=== PATIENT | male | born 1990 | race Caucasian/White ===

== ENCOUNTER 2016-11-14 15:10 | Emergency (ER) | payer BC ==
[~2016-11-14] VITALS: Ht 177.8 cm; Wt 63.1 kg
[2016-11-14 15:19] VITALS: TEMP 36.5; Ht 177.8 cm; Wt 63.1 kg
[2016-11-14] MEDS ORDERED: OXYCODONE HCL IR 5 MG TAB (IMMEDIATE RELEASE) PO STA (15:35)
--- NOTE | 2016-11-14 16:27 | DIAGNOSTIC IMAGING REPORT ---
HEAD CT NONCONTRAST CT DOSE: 876.85 mGy.cm HISTORY: Trauma CHI TECHNIQUE: Multiaxial CT images of the head were performed without the use of intravenous contrast. Comparison: None. Findings: The paranasal sinuses and mastoid air cells are clear. The calvarium and skull base are intact. The ventricles and sulci are within normal limits. There is no mass, hematoma, midline shift, or acute infarct. Impression: No acute intracranial abnormality. Electronically signed by: Edi Castañeda M.D. 11/14/2016 4:25 PM Dictated Date/Time: 11/14/2016 4:24 PM
--- NOTE | 2016-11-14 16:28 | DIAGNOSTIC IMAGING REPORT ---
CERVICAL SPINE CT CT DOSE: HISTORY: Trauma Neck/bilateral shoulder pain TECHNIQUE: Multiaxial CT images of the cervical spine were performed and reformatted in the sagittal and coronal plane without the use of contrast. COMPARISON: None. FINDINGS: No fractures. No subluxation. Prevertebral soft tissues and the C1-C2 interval are intact. No pneumothorax. IMPRESSION: No fractures within the cervical spine. Electronically signed by: Edi Castañeda M.D. 11/14/2016 4:26 PM Dictated Date/Time: 11/14/2016 4:25 PM
--- NOTE | 2016-11-14 16:36 | DIAGNOSTIC IMAGING REPORT ---
CHEST CT WITHOUT CONTRAST CT DOSE: HISTORY: Trauma L rib pain/chest pain TECHNIQUE: Multiaxial CT images of the chest were performed without contrast. COMPARISON: None. FINDINGS: The lungs are clear. The mediastinal vascular structures are within normal limits. No mediastinal or hilar lymphadenopathy. No pleural effusion or pneumothorax. Limited views of the upper abdomen demonstrate a normal liver and spleen. IMPRESSION: No acute process. Electronically signed by: Edi Castañeda M.D. 11/14/2016 4:34 PM Dictated Date/Time: 11/14/2016 4:29 PM
--- NOTE | 2016-11-14 16:38 | DIAGNOSTIC IMAGING REPORT ---
CT SCAN OF THE THORACIC SPINE WITHOUT IV CONTRAST CLINICAL HISTORY: Trauma. COMPARISON STUDY: CT scan of the chest performed concurrently on 11/14/2016 and 09/26/2013. TECHNIQUE: CT scan of the thoracic spine is performed from the lower cervical spine to the upper lumbar spine. Images are reviewed in the axial, sagittal, and coronal planes. IV contrast was not administered for this examination. CT DOSE: 239.93 mGy.cm FINDINGS: The skeletal structures are well mineralized. There is no evidence of fracture or malalignment. Vertebral body height and alignment are maintained throughout the thoracic spine. The transverse and spinous processes appear intact. No lytic or blastic lesions are identified. Intervertebral disc spaces appear maintained. The central canal is clear as imaged. No large disc herniation is suspected. The posterior ribs appear intact. The paraspinous soft tissues are within normal limits. Visualized lung parenchyma appears clear. IMPRESSION: There is no evidence of fracture or malalignment involving the thoracic spine. Electronically signed by: Sreedhar Jaquez M.D. 11/14/2016 4:36 PM Dictated Date/Time: 11/14/2016 4:33 PM
[2016-11-14] MEDS ORDERED: OXYC1TAB3 PO (17:03)
[2016-11-14 17:21] VITALS: BP 101/56; PULSE 73; O2SAT 99
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
== END 2016-11-14 17:57 | disposition home or self-care (01) ==
LOC: C.EDB 15:13
DX: S20.211A Contusion of right front wall of thorax, initial encounter (principal); S09.90XA Unspecified injury of head, initial encounter; W20.8XXA Other cause of strike by thrown, projected or falling object, initial encounter; M25.511 Pain in right shoulder; M25.512 Pain in left shoulder; F32.9 Major depressive disorder, single episode, unspecified; Z88.5 Allergy status to narcotic agent; Z88.8 Allergy status to other drugs, medicaments and biological substances

== ENCOUNTER 2017-05-06 16:11 | Emergency (ER) | payer OTHER, BC ==
[~2017-05-06] VITALS: Ht 185.4 cm; Wt 6.0 kg
[~2017-05-06 16:11] MED LIST: OXYC1TAB3 PO
[2017-05-06 16:16] VITALS: TEMP 36.7; Ht 185.4 cm; Wt 6.0 kg
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
[2017-05-06] MEDS ORDERED: HYDR-5688 PO ×2 (17:31→19:00)
[2017-05-06 17:45] VITALS: BP 112/72; PULSE 82; O2SAT 99
--- NOTE | 2017-05-07 01:01 | EMERGENCY ROOM VISIT NOTE ---
ED Visit Note First contact with patient: 16:25 Chief Complaint: My left leg and ankle hurts. History of Present Illness: Mr. Ramachandran is a 26-year-old white male who ambulates into the ED complaining of lower left leg pain, ankle and foot pain. Patient reports last evening he was working on a car. He stepped backwards and the car rolled over his lower leg, ankle and foot. He reports initially the pain was mild but has gradually increased and became severe today. He reports at rest he describes his pain as a pressure or throbbing sensation that becomes sharp with weightbearing, ambulation and palpation. He rates his discomfort at rest 5/10 and with weightbearing and ambulation 8/10. His pain is nonradiating. He reports she's been using ibuprofen and acetaminophen without relief of his discomfort. He denies any associated pain including knee pain, proximal tibial pain, toe pain, foot weakness/numbness/tingling. He denies any previous significant injuries or surgeries to the left lower leg, ankle or foot. Review of Systems: As noted above in history of present illness. Past Medical History: Patient denies. Current Medications: Patient denies. Allergies to Medications: Morphine, ketorolac tromethamine. Social History: Patient is currently employed; he feels safe in his home environment; he admits to tobacco and alcohol use. Physical Examination: Vital Signs: Date Time Temp Pulse Resp B/P (MAP) Pulse Ox O2 Delivery O2 Flow Rate FiO2 05/06/17 17:45 82 112/72 99 05/06/17 16:45 84 148/99 98 Room Air 05/06/17 16:16 36.7 92 18 114/73 100 Room Air GENERAL: 26 -year-old male in mild to moderate distress due to pain, nontoxic- appearing, afebrile and hemodynamically stable. NEUROLOGICAL: Awake, alert and oriented to person, place and time. Answering questions appropriately and following commands. SKIN: Warm, dry and pink. Left Lower Leg: Superficial abrasion over the anterior and medial aspect of the left lower leg, ankle and foot. LEFT LOWER EXTREMITY: No gross bony deformity. No tenderness in the hip or the knee. Moderate tenderness over the distal third of the anterior medial tibia, the anterior, lateral and medial ankle and over the medial aspect of the foot including navicular and medial cuneiform tarsals. I do not appreciate any bony deformity or crepitus. There is mild swelling and no ecchymosis. He has full range of motion at the knee and all the toes. Slight decreased range of motion any ankle due to pain. I do not appreciate any ligamentous laxity. Throughout the foot the skin was warm and pink and capillary refill is brisk. He was able to distinguish light sensations through all dermatomes. No bulging of the compartments. ED Course: Patient is assessed as noted above. Patient's medicine list was reviewed. Left Tibia/Fibula X-Rays: Were read by myself and the radiologist showing no acute fractures or dislocations. Left Foot X-Rays: Were read by myself and the radiologist showing no acute fractures or dislocations. Left Ankle X-Rays: Were read by myself and the radiologist showing no acute fractures or dislocations. Patient is given ice for pain and comfort. Patient was placed in an ankle gel splint and on nonweightbearing crutches. Patient was educated about today's findings and instructed on his treatment plan ; he verbalized understanding and agreement with this plan. Clinical Impression: Left lower leg, ankle and foot pain. Disposition: Patient discharged home in stable condition; prior to departure he was reassessed and subjectively reported he was feeling slightly better and rated his discomfort 5/10. Plan: Comfort measures were discussed with the patient including rest, ice, elevation , splint and crutch use. Additionally patient was placed on a sliding pain medication scale of ibuprofen , acetaminophen and [place]; he was given appropriate narcotic precautions and his name was checked in the state database and no red flags were noted. Patient was encouraged to follow-up with orthopedics if no better in 7-10 days. Patient was encouraged return ED for worsening/uncontrolled pain, uncontrolled swelling, foot/leg weakness/numbness/tingling or any new/concerning symptoms.
== END 2017-05-06 17:47 | disposition home or self-care (01) ==
LOC: C.EDB 16:12 → C.EDD 17:47
DX: S89.82XA Other specified injuries of left lower leg, initial encounter (principal); M79.605 Pain in left leg; V09.1XXA Pedestrian injured in unspecified nontraffic accident, initial encounter

== ENCOUNTER 2017-08-26 18:46 | Emergency (ER) | payer BC, OTHER ==
[~2017-08-26] VITALS: Ht 185.4 cm; Wt 62.8 kg
[~2017-08-26 18:46] MED LIST changes: +HYDR-5688 PO; -OXYC1TAB3 PO
[2017-08-26 19:29] VITALS: TEMP 36.8; Ht 185.4 cm; Wt 62.8 kg
--- NOTE | 2017-08-26 21:00 | DIAGNOSTIC IMAGING REPORT ---
CHEST 2 VIEWS ROUTINE CLINICAL HISTORY: cough COMPARISON STUDY: 02/13/2016 FINDINGS: The cardiac and mediastinal contours are normal. There is no evidence of focal pulmonary consolidation. There is no evidence of failure. No pleural effusions are visualized.[ IMPRESSION: No active disease in the chest. Electronically signed by: Vishnu Gupta M.D. 08/26/2017 8:59 PM Dictated Date/Time: 08/26/2017 8:59 PM
[2017-08-26 21:43] VITALS: BP 110/66; PULSE 70; O2SAT 98
[2017-08-26] MEDS ORDERED: ALBUTEROL HFA 8 GM INHALER INH ONE (21:45)
[2017-08-26] MEDS ORDERED: AZITTAB PO (21:50)
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
== END 2017-08-26 21:59 | disposition home or self-care (01) ==
LOC: C.EDB 18:49
DX: J06.9 Acute upper respiratory infection, unspecified (principal); F32.9 Major depressive disorder, single episode, unspecified

== ENCOUNTER 2017-11-13 23:20 | Emergency (ER) | payer BC, OTHER ==
[~2017-11-13] VITALS: Ht 185.4 cm; Wt 67.4 kg
[2017-11-13 23:23] VITALS: TEMP 36.8; Ht 185.4 cm; Wt 67.4 kg
[2017-11-13] MEDS ORDERED: LIDOCAINE/EPINEPH/TETRACAINE 1 EA SYR ONE (23:34)
[2017-11-14 00:39] VITALS: BP 125/85; PULSE 73; O2SAT 99
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
== END 2017-11-14 00:46 | disposition home or self-care (01) ==
LOC: C.EDB 23:22 → C.EDC 11-14 00:46
DX: S01.01XA Laceration without foreign body of scalp, initial encounter (principal); W22.8XXA Striking against or struck by other objects, initial encounter; Z88.5 Allergy status to narcotic agent

== ENCOUNTER 2017-11-20 20:50 | Emergency (ER) | payer OTHER ==
[~2017-11-20] VITALS: Ht 185.4 cm; Wt 66.8 kg
[2017-11-20 20:54] VITALS: BP 116/81; PULSE 92; TEMP 36.9; O2SAT 100; Ht 185.4 cm; Wt 66.8 kg
--- NOTE | 2017-11-20 21:08 | EMERGENCY ROOM VISIT NOTE ---
ED Visit Note First contact with patient: 21:00 CHIEF COMPLAINT: Staple removal This patient is a 27-year-old male who presents to the emergency department for staple removal. The patient sustained a head laceration on 11/13. He has 4 harry in the crown. He thinks that it is healing well. REVIEW OF SYSTEMS: 6 system review negative. Please see pertinent positives in the history of present illness section. PMH: Unchanged from previous visit SOCIAL HISTORY: Patient lives at home. PHYSICAL EXAM: Vital Signs: Reviewed Nurse's notes. There is a stapled wound on the crown of the head with no signs of infection. There is no erythema, swelling, or tenderness. EMERGENCY DEPARTMENT COURSE: The harry were removed without any difficulty and there was no separation of the wound edges. DIAGNOSIS: Healing laceration and suture removal DISCHARGE INSTRUCTIONS AND TREATMENT: Gently wash any remaining crusts off of the wound today and resume your normal activities. This chart was completed in part utilizing [employer] Speech Voice Recognition software. Attempts were made to minimize the grammatical errors, random word insertions, pronoun errors and incomplete sentences. Any formal questions or concerns about the content, text or information contained within the body of this dictation should be directly addressed to the provider for clarification.
== END 2017-11-20 21:20 | disposition home or self-care (01) ==
LOC: C.EDB 20:51 → C.EDD 21:20
DX: S01.01XD Laceration without foreign body of scalp, subsequent encounter (principal); X58.XXXD Exposure to other specified factors, subsequent encounter